=== PATIENT | female | born 1985 | race Caucasian/White ===

== ENCOUNTER 2018-09-30 18:18 | Observation (INO) | payer OTHER, SELFPAY ==
[2018-09-30 18:18] VITALS: BP 140/80; PULSE 109; RESP 18; TEMP 37.1; O2SAT 97; BMI 36.0
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
[2018-09-30 22:25] VITALS: BP 136/82; PULSE 72; RESP 16; O2SAT 100
[2018-09-30 22:31] LABS: Absolute Lymphocyte Count 2.05 X10^3/ul (0.83-4.51); Absolute Neutrophil Count 4.5 X10^3/uL (2.0-7.7); Basophil# 0.03 X10^3/uL; Basophil% 0.4 % (0-1); Eosinophil# 0.08 X10^3/uL; Eosinophils% 1.1 % (0-5); Hematocrit 43.3 % (37-47); Hemoglobin 14.2 g/dl (12.0-15.0); Lymphocyte # 2.05 X10^3/ul (4.0); Lymphocyte % 29.4 % (19-41); Mean Corp Hgb Conc 32.8 g/gl (32-36); Mean Corpuscular Hgb 28.9 pg (27.0-32.0); Mean Corpuscular Volume 88.2 fL (81-99); Mean Platelet Vol. 8.7 fl (6.2-12.0); Monocyte# 0.36 X10^3/uL; Monocyte% 5.2 % (0-10); Neutrophil # 4.45 X10^3/uL (2.7-7.7); Neutrophil % 63.9 % (47-70); Platelet Count 266 K/mm3 (150-450); RBC Distribution Width CV 13.1 % (11.6-14.6); Red Blood Count 4.91 M/mm3 (4.2-5.4)
[2018-09-30 22:37] LABS: POSITIVE COUNT NO; POSITIVE DIFFERENTIAL NO; POSITIVE MORPHOLOGY NO
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
[2018-09-30 22:48] LABS: Amphetamine Urine VISTA NEGATIVE (<1000 ng/mL); Barbiturate Urine VISTA NEGATIVE (< 200 ng/mL); Benzodiazepine Urine VISTA POSITIVE (< 200 ng/mL); Cocaine Urine VISTA NEGATIVE (< 300 ng/mL); Ecstacy Urine VISTA NEGATIVE (< 500 ng/mL); Methadone Urine VISTA NEGATIVE (< 300 ng/mL); PCP Urine VISTA NEGATIVE (< 25 ng/mL); THC Urine VISTA NEGATIVE (< 50 ng/mL); Vista UDS pH Range 6
[2018-09-30 22:56] LABS: Anion Gap 5 (5-15); BUN 11 mg/dL (7-18); BUN/Creat Ratio 13.6 RATIO (10-20); Calcium,Total 8.6 mg/dL (8.5-10.1); Chloride 106 mmol/L (98-107); Creatinine, Serum 0.81 mg/dL (0.55-1.02); EST Glomerular Filtration Rate 86 mL/min (>60); Est Glom Filt Rate - Afr Amer 105 mL/min (>60); Estimated Creatinine Clearance 88.89 ml/min; Glucose 97 mg/dL (74-106); Potassium 4.1 mmol/L (3.5-5.1); Pregnancy, Serum, hCG Quali. NEGATIVE Negative (0-9 Nonpreg); Sodium Level 137 mmol/L (136-145)
[2018-09-30 23:00] VITALS: BP 143/83; PULSE 83; RESP 16; TEMP 37; O2SAT 97
[2018-09-30 23:04] VITALS: BP 135/89
[2018-09-30 23:05] VITALS: BMI 32.4
[2018-09-30] MEDS: 0.9% Normal Saline 1,000 ML 100 ML IV (23:10)
[2018-09-30 23:11] VITALS: PULSE 77
[2018-09-30 23:18] VITALS: BMI 32.5
[2018-09-30 23:27] LABS: Thyroid Stim Hormone (TSH) 0.57 uIU/mL (0.358-3.74)
[2018-10-01] MEDS: diazePAM 5 MG Tablet 10 MG PO ×2 (00:36→09:45)
[2018-10-01 03:04] VITALS: PULSE 73
[2018-10-01 03:40] VITALS: BP 108/57; PULSE 70; RESP 16; TEMP 36.3; O2SAT 98
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
[2018-10-01 07:20] VITALS: PULSE 85
[2018-10-01 07:44] LABS: Cholesterol 168 mg/dL (200); High Density Lipoprotein 42 mg/dL; Triglycerides 62 mg/dL; Very Low Density Lipoprotein 12 mg/dL (5-40)
[2018-10-01 09:40] VITALS: BP 124/72; PULSE 78; RESP 15; TEMP 36.6; O2SAT 97
[2018-10-01] MEDS: Paroxetine 20 MG Tablet 40 MG PO (09:43)
[2018-10-01] MEDS: Aspirin 81 MG TAB.CHEW PO (09:43)
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
--- NOTE | 2018-10-01 11:37 | CASEMGMT ---
SOCIAL WORK NOTE PATIENT D/C'ED THIS DAY. UPON ENTERING, NURSE COMPLETING REVIEW OF D/C INSTRUCTIONS WITH PATIENT. ENCOURAGED PATIENT TO FOLLOW UP WITH COUNSELOR THIS DAY TO SCHEDULE APPOINTMENT. PATIENT STATES WILL BE CALLING WHEN SHE GETS HOME. PATIENT DENIES ANY OTHER NEEDS AT THIS TIME. ZURI MISHRA, C ARCHITECT, COPIER REPAIR TECHNICIAN.
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
== END 2018-10-01 11:00 | disposition home or self-care (01) ==
LOC: ED 19:09 → PCU 22:43
PROVIDERS: Admitting Provider Family Medicine; Emergency Provider Emergency Medicine; Family Provider Family Medicine; PCP Family Medicine; Referring Provider Family Medicine; Visit Provider Internal Medicine
DX: M54.9 Dorsalgia, unspecified (principal); G89.29 Other chronic pain; F43.12 Post-traumatic stress disorder, chronic; S09.90XA Unspecified injury of head, initial encounter; T71.9XXA Asphyxiation due to unspecified cause, initial encounter; F41.9 Anxiety disorder, unspecified; F32.9 Major depressive disorder, single episode, unspecified; Z79.899 Other long term (current) drug therapy; E66.9 Obesity, unspecified; Z68.32 Body mass index [BMI] 32.0-32.9, adult; Z71.3 Dietary counseling and surveillance; Y04.0XXA Assault by unarmed brawl or fight, initial encounter; Y93.9 Activity, unspecified; Y92.9 Unspecified place or not applicable
CPT/HCPCS: 36415; 70450; 70498; 70553; 72100; 80048; 80061; 80307; 80320; 84443; 84703; 85025; 96360; 96361; 99218; 99281; A9575; J7030; Q9967; A4216; G0378; G0480

== ENCOUNTER → 2018-12-07 12:49 | Outpatient (CLI) | payer OTHER, SELFPAY ==
[2018-12-14 08:07] LABS: Testosterone, % Free 0.96 % (0.50-2.80); Testosterone, Free 0.46 ng/dL (0.10-0.85); Testosterone, Total 48 ng/dL (8-48)
[2018-12-14 10:00] LABS: DHEA Sulfate 190.9 ug/dL (84.8-378.0)
== END ==
PROVIDERS: Family Provider Family Medicine; PCP Family Medicine; Referring Provider Family Medicine; Visit Provider Family Medicine
DX: L65.9 Nonscarring hair loss, unspecified (principal)
CPT/HCPCS: 36415; 82627; 84402; 84403; 82626

== ENCOUNTER 2019-03-12 21:44 | Emergency (ER) | payer OTHER, SELFPAY ==
[2019-03-12 21:46] VITALS: BP 124/92; PULSE 116; RESP 18; TEMP 36.6; O2SAT 98; BMI 29.3
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
[2019-03-12] MEDS: Morphine 4 MG/ML Syringe IM (22:18)
[2019-03-12] MEDS: Ondansetron ODT 4 MG Tablet PO (22:18)
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
== END 2019-03-12 23:34 | disposition home or self-care (01) ==
PROVIDERS: Emergency Provider Emergency Medicine; Family Provider Family Medicine; PCP Family Medicine
DX: S30.0XXA Contusion of lower back and pelvis, initial encounter (principal); Y04.2XXA Assault by strike against or bumped into by another person, initial encounter; Y93.89 Activity, other specified; F32.9 Major depressive disorder, single episode, unspecified; F40.01 Agoraphobia with panic disorder; F12.90 Cannabis use, unspecified, uncomplicated
CPT/HCPCS: 71046; 72100; 96372; 99284

== ENCOUNTER → 2019-06-23 13:57 | Outpatient (CLI) | payer OTHER, SELFPAY ==
[2019-06-23 15:52] LABS: Amphetamine Urine VISTA NEGATIVE (<1000 ng/mL); Barbiturate Urine VISTA NEGATIVE (< 200 ng/mL); Benzodiazepine Urine VISTA POSITIVE (< 200 ng/mL); Cocaine Urine VISTA NEGATIVE (< 300 ng/mL); Ecstacy Urine VISTA NEGATIVE (< 500 ng/mL); Methadone Urine VISTA NEGATIVE (< 300 ng/mL); PCP Urine VISTA NEGATIVE (< 25 ng/mL); THC Urine VISTA POSITIVE (< 50 ng/mL); Vista UDS pH Range 6
== END ==
PROVIDERS: Family Provider Family Medicine; PCP Family Medicine; Visit Provider Family Medicine
DX: Z51.81 Encounter for therapeutic drug level monitoring (principal)
CPT/HCPCS: 80307

== ENCOUNTER → 2019-07-27 14:08 | Outpatient (CLI) | payer OTHER, SELFPAY ==
[2019-07-27 15:46] LABS: Amphetamine Urine VISTA NEGATIVE (<1000 ng/mL); Barbiturate Urine VISTA NEGATIVE (< 200 ng/mL); Benzodiazepine Urine VISTA POSITIVE (< 200 ng/mL); Cocaine Urine VISTA NEGATIVE (< 300 ng/mL); Ecstacy Urine VISTA NEGATIVE (< 500 ng/mL); Methadone Urine VISTA NEGATIVE (< 300 ng/mL); PCP Urine VISTA NEGATIVE (< 25 ng/mL); THC Urine VISTA POSITIVE (< 50 ng/mL); Vista UDS pH Range 5
[2019-07-27 15:59] LABS: OXY Internal Control LINE = VALID (VALID); Oxycodone Drug Screen Negative (<100 ng/mL)
== END ==
LOC: BFHLAB 14:08
PROVIDERS: Family Provider Family Medicine; PCP Family Medicine; Visit Provider Family Medicine
DX: Z51.81 Encounter for therapeutic drug level monitoring (principal); M54.5 Low back pain; G89.29 Other chronic pain
CPT/HCPCS: 80307; 80365; G0480

== ENCOUNTER → 2020-02-18 13:41 | Outpatient (CLI) | payer OTHER, SELFPAY ==
[2020-02-18 16:14] LABS: OXY Internal Control LINE = VALID (VALID); Oxycodone Drug Screen Positive (<100 ng/mL)
[2020-02-18 16:20] LABS: Amphetamine Urine VISTA NEGATIVE (<1000 ng/mL); Barbiturate Urine VISTA NEGATIVE (< 200 ng/mL); Benzodiazepine Urine VISTA POSITIVE (< 200 ng/mL); Cocaine Urine VISTA NEGATIVE (< 300 ng/mL); Ecstacy Urine VISTA NEGATIVE (< 500 ng/mL); Methadone Urine VISTA NEGATIVE (< 300 ng/mL); PCP Urine VISTA NEGATIVE (< 25 ng/mL); Protein:Creat Ratio 63 mg/g CRE (0-200); THC Urine VISTA NEGATIVE (< 50 ng/mL); Vista UDS pH Range 6
== END ==
PROVIDERS: PCP Family Medicine; Visit Provider Family Medicine
DX: Z79.899 Other long term (current) drug therapy (principal)
CPT/HCPCS: 80307; 80365; 82570; 84156; G0480

== ENCOUNTER → 2020-03-09 13:29 | Outpatient (CLI) | payer OTHER, SELFPAY ==
[2020-03-09 15:27] LABS: Absolute Neutrophil Count 3.6 X10^3/uL (2.0-7.7); Basophil# 0.03 X10^3/uL; Basophil% 0.5 % (0-1); Eosinophil# 0.03 X10^3/uL; Eosinophils% 0.5 % (0-5); Hematocrit 40.1 % (37-47); Hemoglobin 13.5 g/dL (12.0-15.0); Lymphocyte % 28.8 % (19-41); Mean Corp Hgb Conc 33.7 g/dL (32-36); Mean Corpuscular Hgb 29.3 pg (27.0-32.0); Mean Corpuscular Volume 87.2 fL (81-99); Mean Platelet Vol. 9.3 fl (6.2-12.0); Monocyte# 0.32 X10^3/uL; Monocyte% 5.8 % (0-10); NRBC Flagged by Analyzer 0 % (0-5); Neutrophil # 3.55 X10^3/uL (2.7-7.7); Platelet Count 268 K/mm3 (150-450); RBC Distribution Width CV 13.7 % (11.6-14.6); RBC Distribution Width SD 42.6 fl (35.1-43.9); White Blood Count 5.6 K/mm3 (4.4-11.0)
[2020-03-09 16:04] LABS: Vitamin B12 675 pg/mL (211-911)
[2020-03-09 16:09] LABS: ALB/GLOB Ratio 0.9 RATIO (0.9-2.4); AST(SGOT) 14 U/L (15-37); Alanine Aminotransfer ALT/SGPT 19 U/L (13-56); Albumin, Serum 3.4 g/dL (3.2-5.0); Alkaline Phosphatase 74 U/L (45-117); Anion Gap 6 (5-15); BUN 5 mg/dL (7-18); BUN/Creat Ratio 6.8 RATIO (10-20); Calcium,Total 8.5 mg/dL (8.5-10.1); Chloride 111 mmol/L (98-107); Creatinine, Serum 0.73 mg/dL (0.55-1.02); EST Glomerular Filtration Rate 97 mL/min (>60); Est Glom Filt Rate - Afr Amer 117 mL/min (>60); Ferritin 51 ng/mL (8-252); Globulin 3.9 g/dL (2.2-4.2); Glucose 75 mg/dL (74-106); Iron 90 ug/dL (50-170); Potassium 3.4 mmol/L (3.5-5.1); Protein, Total 7.3 g/dL (6.4-8.2); Sodium Level 141 mmol/L (136-145); T4 Free Direct 1.11 ng/dL (0.76-1.46)
== END ==
LOC: BFHLAB 13:30
PROVIDERS: PCP Family Medicine; Visit Provider Family Medicine
DX: K91.1 Postgastric surgery syndromes (principal); L65.9 Nonscarring hair loss, unspecified; R53.83 Other fatigue
CPT/HCPCS: 36415; 80053; 82607; 82728; 83540; 84439; 84443; 85025

== ENCOUNTER → 2020-04-25 13:13 | Outpatient (CLI) | payer OTHER, SELFPAY ==
[2020-04-25 15:23] LABS: Estradiol 295.6 pg/mL; Follicle Stimulating Hormone 2.8 mIU/mL; Luteinizing Hormone 4.8 mIU/mL
[2020-04-26 08:39] LABS: Procalcitonin < 0.04 ng/mL (0.00-0.09)
== END ==
LOC: BFHLAB 13:15
PROVIDERS: PCP Family Medicine; Visit Provider Family Medicine
DX: L65.9 Nonscarring hair loss, unspecified (principal); R23.2 Flushing; L68.0 Hirsutism
CPT/HCPCS: 36415; 82627; 82670; 83001; 83002; 84145; 84403; 82626

== ENCOUNTER → 2020-05-09 17:10 | Outpatient (CLI) | payer OTHER, SELFPAY | PROVIDERS: PCP Family Medicine; Referring Provider Family Medicine; Visit Provider Family Medicine | DX: Z20.828 Contact with and (suspected) exposure to other viral communicable diseases (principal) | CPT/HCPCS: 87635; C9803; U0003 ==

== ENCOUNTER → 2020-09-14 16:05 | Outpatient (CLI) | payer OTHER, SELFPAY ==
[2020-09-14 17:16] LABS: Amphetamine Urine VISTA NEGATIVE (<1000 ng/mL); Barbiturate Urine VISTA NEGATIVE (< 200 ng/mL); Benzodiazepine Urine VISTA POSITIVE (< 200 ng/mL); Cocaine Urine VISTA NEGATIVE (< 300 ng/mL); Ecstacy Urine VISTA NEGATIVE (< 500 ng/mL); Methadone Urine VISTA NEGATIVE (< 300 ng/mL); PCP Urine VISTA NEGATIVE (< 25 ng/mL); THC Urine VISTA NEGATIVE (< 50 ng/mL); Vista UDS pH Range 6
[2020-09-14 17:21] LABS: OXY Internal Control LINE = VALID (VALID); Oxycodone Drug Screen Positive (<100 ng/mL)
== END ==
LOC: BFHLAB 16:06
PROVIDERS: PCP Family Medicine; Visit Provider Family Medicine
DX: Z79.899 Other long term (current) drug therapy (principal)
CPT/HCPCS: 80307; 80365; G0480

== ENCOUNTER → 2020-10-11 17:47 | Outpatient (CLI) | payer OTHER, SELFPAY ==
--- NOTE | 2020-10-11 17:52 | MRI_ITS ---
STUDY: MRI LUMBAR SPINE WITHOUT CONTRAST REASON FOR EXAM: Female, 35 years old. LOW BACK PAIN TECHNIQUE: Standardized fat and water weighted pulse sequences were obtained in the sagittal and axial planes. COMPARISON: X-ray 03/12/2019. FINDINGS: T12-L1: Disc dehydration. Small T12 Schmorl''s node. Normal bilateral facet joints. Normal central canal and bilateral lateral recesses. Normal bilateral intervertebral neural foramina. Normal lumbar lordosis. There is no substantial scoliosis. Normal conus medullaris that terminates at the L1-2: Normal endplates. Disc dehydration. Normal bilateral facet joints. Normal central canal and bilateral lateral recesses. Normal bilateral intervertebral neural foramina. L2-3: Normal endplates. Disc dehydration. Small right paracentral annular fissure. Normal bilateral facet joints. Normal central canal and bilateral lateral recesses. Normal bilateral intervertebral neural foramina. L3-4: Normal endplates. Normal disc height, hydration and morphology. Normal bilateral facet joints. Normal central canal and bilateral lateral recesses. Normal bilateral intervertebral neural foramina. L4-5: Normal endplates. Disc dehydration and mild disc space narrowing. Normal bilateral facet joints. Normal central canal and bilateral lateral recesses. Normal bilateral intervertebral neural foramina. L5-S1: Normal endplates. Disc dehydration. Normal bilateral facet joints. Normal central canal and bilateral lateral recesses. Normal bilateral intervertebral neural foramina. Normal visualized sacral ala. Normal visualized paraspinous soft tissue structures. MRI/Spine Lumbar (Routine) IMPRESSION: 1. L2-3 annular fissure. 2. Multilevel degenerative disc changes. Electronically Signed: Hui Ohara MD at 21:13 EDT Tel , Service support ,
== END ==
PROVIDERS: PCP Family Medicine; Referring Provider Family Medicine; Visit Provider Family Medicine
DX: M54.16 Radiculopathy, lumbar region (principal)
CPT/HCPCS: 72148

== ENCOUNTER → 2020-11-30 | Outpatient (CLI) | payer OTHER, SELFPAY ==
[2020-11-30 18:24] LABS: Amphetamine Urine VISTA NEGATIVE (<1000 ng/mL); Barbiturate Urine VISTA NEGATIVE (< 200 ng/mL); Benzodiazepine Urine VISTA POSITIVE (< 200 ng/mL); Cocaine Urine VISTA NEGATIVE (< 300 ng/mL); Ecstacy Urine VISTA NEGATIVE (< 500 ng/mL); Methadone Urine VISTA NEGATIVE (< 300 ng/mL); PCP Urine VISTA NEGATIVE (< 25 ng/mL); THC Urine VISTA NEGATIVE (< 50 ng/mL); Vista UDS pH Range 5
[2020-11-30 18:35] LABS: OXY Internal Control LINE = VALID (VALID); Oxycodone Drug Screen Positive (<100 ng/mL)
[2020-11-30 20:19] LABS: Chlamydia Trachomatis by PCR Negative (Negative); Neisserai gonorrhoeae by PCR Negative (Negative); Probe Check PASS; Sample Adequacy Control PASS; Specimen Processing Control PASS
== END | disposition home or self-care (01) ==
PROVIDERS: PCP Family Medicine; Visit Provider Family Medicine
DX: N89.8 Other specified noninflammatory disorders of vagina (principal); Z51.81 Encounter for therapeutic drug level monitoring
CPT/HCPCS: 80307; 80365; 87491; 87591; G0480

== ENCOUNTER 2021-01-30 19:30 | Emergency (ER) | payer OTHER, SELFPAY ==
[2021-01-30 19:32] VITALS: BP 136/68; PULSE 107; RESP 18; TEMP 36.6; O2SAT 98; BMI 29.0
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
== END 2021-01-30 20:14 | disposition home or self-care (01) ==
LOC: ED 20:09
PROVIDERS: Emergency Provider Emergency Medicine; PCP Family Medicine
DX: R51.9 Headache, unspecified (principal); F17.210 Nicotine dependence, cigarettes, uncomplicated; F41.9 Anxiety disorder, unspecified; Z79.899 Other long term (current) drug therapy
CPT/HCPCS: 99283

== ENCOUNTER 2021-12-03 16:50 | Emergency (ER) | payer OTHER, SELFPAY ==
[2021-12-03 16:51] VITALS: BP 132/95; PULSE 132; RESP 18; TEMP 36.5; O2SAT 98; BMI 24.1
--- NOTE | 2021-12-03 17:34 | EDS_ITS ---
HPI History of Present Illness Chief Complaint: Palpitations Informant: patient Onset/Context/Timing Onset: Today Timing: Continuous Narrative Narrative: 36-year-old female history of PTSD and anxiety. Also mitral valve prolapse. About 3 hours ago she woke up that she did not feel great and noticed her heart rate was accelerated. She did not feel anxious but took 1 Xanax and 2 clonazepam. Said her heart rate still slightly elevated. She denies chest pain or any shortness of breath. No leg pain or swelling. No hemoptysis. Denies recent illness. Denies fever or, nausea, vomiting, diarrhea. No melena. Prior Similar Symptoms: Yes Recent Illness/Hospitalization: No CVD Risk Factors: Negative for Hypertension and Diabetes PE Risk Factors: Negative for Recent Travel/Surgery, Recent Immobilization, Prior DVT or PE, Cancer and OCP + Smoking + >/=35 TAD Risk Factors: Negative for Marfan's Syndrome [facility] Medical History (Updated 12/03/21 @ 21:[address] Yaw Brown MD) Anxiety Depression PTSD (post-traumatic stress disorder) Home Medications alprazolam [Xanax] 1 mg PO DAILY PRN 09/30/18 [History Last Taken Unknown] clonazepam 1 mg PO DAILY 12/03/21 [History Last Taken Unknown] nystatin 1 applic TOPICAL BID #30 g 12/03/21 [Rx Last Taken Unknown] Allergy/AdvReac Type Severity Reaction Status Date / Time iodine AdvReac Other Verified 12/03/21 16:50 Surgical History (Updated 12/03/21 @ 18:14 by Jazmyn Blakely) History of cholecystectomy History of hysterectomy Social History Smoking Status: Current every day smoker tobacco type: cigarettes and smokeless tobacco ROS ROS ED ROS Narrative Denies. Review of Systems ROS Unobtainable: Denies due to encephalopathy Constitutional Constitutional ED: Denies fever(s) Eyes Eyes: Denies none ENT ENT ED: Denies ear pain Cardiovascular Cardiovascular: Reports palpitations and racing heartbeat; Denies as per HPI or chest pain Respiratory/Chest Respiratory/Chest: Denies dyspnea Gastrointestinal Gastrointestinal: Denies abdominal pain, diarrhea, nausea or vomiting Genitourinary Genitourinary ED: Denies dysuria or hematuria Musculoskeletal Musculoskeletal: Denies myalgias Integumentary Denies rash Neurologic Neurologic: Denies headache(s) Psychiatric Psychiatric: Denies depression Endocrine Endocrinology: Denies polyuria Hematologic/Lymphatic Hematologic/Lymphatic: Denies easy bruising Allergic/Immunologic Allergic/Immunologic ED: Denies urticaria EXAM Physical Exam Narrative Exam Narrative: 36-year-old female no acute distress. Vital signs stable afebrile initial heart rate in triage 132 now is down to 107. She is afebrile. Pulse ox 90% on room air no signs hypoxia. H EENT exam unremarkable lungs are clear. Heart regular rhythm rate about 107 no murmur. Chest were nontender. Abdomen soft nontender. Moving all extremities. Calves are nontender without edema or cords. Neurologically she is awake and alert with no focal motor deficits. She is Const Vital Signs: 12/03/21 16:51 12/03/21 18:10 12/03/21 20:26 Temperature 97.7 F L Temperature Source Temporal Pulse Rate 132 H 95 91 Respiratory Rate 18 19 H 20 H Respiratory Effort Normal Non-Labored Respiratory Pattern Normal Blood Pressure 132/95 H 105/79 Blood Pressure Mean 107 87 Pulse Ox 98 98 Oxygen Delivery Method Room Air Room Air Room Air 12/03/21 20:50 Temperature Temperature Source Pulse Rate 86 Respiratory Rate 17 Respiratory Effort Respiratory Pattern Blood Pressure 108/86 H Blood Pressure Mean Pulse Ox 96 Oxygen Delivery Method Positive well nourished and well developed; Negative for obese, cachectic, contractures or unkempt General Appearance ED: well developed and NAD; Negative for unkempt, cachectic, contractures or pallor Nutritional Appearance: Negative for cachectic or obese HEENT Reports moist mucous membranes normocephalic and atraumatic; Negative for trauma or tenderness Eyes PERRL and EOMs intact bilaterally General Eye ED: Negative for pale conjunctiva or scleral icterus Neck no lymphadenopathy, supple and no JVD General: Negative for tenderness Chest Wall inspection of chest normal and palpation of chest normal Chest: Negative for tenderness Resp normal respiratory effort and clear to auscultation bilaterally Effort and Inspection: respiratory distress Auscultation: Negative for rales, rhonchi or wheezes Cardio regular rhythm, S1 normal heart sound, S2 normal heart sound and no murmurs; Negative for regular rate Rate: tachycardic GI normal to inspection, nondistended, normoactive bowel sounds, soft to palpation, non-tender, non-distended and no masses; Negative for hepatosplenomegaly Auscultation: Negative for hyperactive bowel sounds Palpation: Negative for splenomegaly or mass Back/Spine no CVA tenderness and no thoracic nor lumbar tenderness General Back: Negative for CVA tenderness Cervical Spine: Negative for cervical spine tenderness Extremity normal to inspection General Extremety ED: Negative for edema, pulses abnormal or tenderness General Extremity: Negative for edema or pulses abnormal Neuro oriented x3 Sensorium / Orientation: awake, alert, oriented to person, oriented to place and oriented to time; Negative for confused, lethargic or stuporous Motor Exam: strength 5/5 throughout Psych mental status grossly normal Appearance: Negative for unkempt Mood & Affect: depressed and anxious Skin no rashes or lesions noted and no wounds General Skin Exam: Negative for jaundice or pallor Rashes: No rashes noted Trauma: Negative for abrasion or puncture MDM MDM MDM Narrative Medical decision making narrative: 36-year-old with tachycardia. I suspect this abdomen anxiety. Exam is benign. Screening labs being obtained. Back to reevaluate the patient. She is standing in the hallway. She seems quite upset. The patient was extremely disrespectful to the nursing staff. She was cursing and being verbally abusive to them. I explained to her that her test results look good. Her potassium was only slightly low. There is nothing abnormal I can find either on exam or her EKG or labs. She started cursing at me. We will have security discharge her from the department. Prior to patient leaving she seemed to calm down. I went back in his room to exam room with the charge nurse that she had a [id number] male look at it is obviously a skin yeast infection along the medial aspect of her breast. I explained to her we will call her in a prescription to her pharmacy for nystatin cream. She apologized to me for her behavior. And then later apologized to the nurse prior to being discharged. Lab Data Attestation: I reviewed the patient's lab results. Lab results narrative: CBC unremarkable white count of 5. H&H 13 and 39. Electrolytes unremarkable and potassium of 3.2. Normal gap of 7. Normal BUN and creatinine. Normal glucose 84. Labs: Laboratory Results - last 24 hr 12/03/21 12/03/21 17:55 17:55 WBC 5.3 RBC 4.59 Hgb 13.7 Hct 39.1 MCV 85.2 MCH 29.8 MCHC 35.0 RDW Std Deviation 37.4 RDW Coeff of Hugo 12.4 Plt Count 291 MPV 9.0 Sodium 141 Potassium 3.2 L Chloride 105 Carbon Dioxide 29.0 Anion Gap 7 BUN 10 Creatinine 0.84 Estim Creat Clear Calc 83.31 Est GFR (MDRD) Af Amer 98 Est GFR (MDRD) Non-Af 81 BUN/Creatinine Ratio 11.9 Glucose 84 Calcium 9.2 Rhythm Strip Rhythm Strip: Sinus Tach Rate: 107 Ectopy: None EKG Initial EKG: Attestation: I personally reviewed and interpreted this EKG as follows: Interpretation: Sinus Rhythm, No Acute Injury Pattern and Sinus Tachycardia Comments: Sinus tachycardia rate of 107 no acute signs of CA, ischemia nor dysrhythmia. Prior EKG tracings: not available for review Discharge Plan Triage Chief Complaint: Palpitations ED Provider: Yaw Brown Dx/Rx/DC Orders Clinical Impression: Heart palpitations, Anxiety, History of post traumatic stress disorder, Acute hypokalemia, Skin yeast infection Instructions: ED Hypokalemia, ED Palpitations Prescriptions: New nystatin 100,000 unit/gram ointment 1 applic topical BID Qty: 30 RF: 0 No Action alprazolam [Xanax] 1 MG tablet 1 mg PO DAILY PRN (Reason: Anxiety) RF: 0 clonazepam 1 mg tablet,disintegrating 1 mg PO DAILY RF: 0 Primary Care Provider: Wyatt Karimi Referrals: Wyatt Karimi DO [Primary Care Provider] - 1 Week Activity Restrictions/Additional Instructions: Follow-up with your doctor. Your EKG and labs were unremarkable except your potassium was just below normal. Make sure you are eating plenty of green leafy vegetables and fruit and your potassium level should come up to normal. Disposition Disposition: Home, Self Care
--- NOTE | 2021-12-03 17:58 | EKG12_ITS ---
Test Reason : TACHY Blood Pressure : / mmHG Vent. Rate : 107 BPM Atrial Rate : 107 BPM P-R Int : 134 ms QRS Dur : 074 ms QT Int : 338 ms P-R-T Axes : 064 083 059 degrees QTc Int : 451 ms Sinus tachycardia Otherwise normal ECG Confirmed by IVORY LUU, ROSEMARY ([id number]), mapping editor CATRACHO MARRUFO ([id number]) on 12/05/2021 10:34:51 AM Referred By: Confirmed By:ROSEMARY DODSON MD
[2021-12-03 18:04] LABS: Hematocrit 39.1 % (37-47); Hemoglobin 13.7 g/dL (12.0-15.0); Mean Corpuscular Hgb 29.8 pg (27.0-32.0); Mean Corpuscular Volume 85.2 fL (81-99); Platelet Count 291 K/mm3 (150-450); RBC Distribution Width CV 12.4 % (11.6-14.6); RBC Distribution Width SD 37.4 fl (35.1-43.9); Red Blood Count 4.59 M/mm3 (4.2-5.4); White Blood Count 5.3 K/mm3 (4.4-11.0)
[2021-12-03 18:10] VITALS: PULSE 95; RESP 19
[2021-12-03 18:18] LABS: Anion Gap 7 (5-15); BUN 10 mg/dL (7-18); BUN/Creat Ratio 11.9 RATIO (10-20); Calcium,Total 9.2 mg/dL (8.5-10.1); Chloride 105 mmol/L (98-107); Creatinine, Serum 0.84 mg/dL (0.55-1.02); EST Glomerular Filtration Rate 81 mL/min (>60); Est Glom Filt Rate - Afr Amer 98 mL/min (>60); Estimated Creatinine Clearance 83.31 ml/min; Glucose 84 mg/dL (74-106); Potassium 3.2 mmol/L (3.5-5.1); Sodium Level 141 mmol/L (136-145)
[2021-12-03 20:26] VITALS: BP 105/79; PULSE 91; RESP 20; O2SAT 98
--- NOTE | 2021-12-03 20:40 | ED.RN ---
pt was very pleasant, did the pts med list. then out of no where the pt started swearing at this rn, stated she was going to rip all the wires off herand leave calling this rn a bitch. dr was notified that she was leaving, he went to go talk w her and she started calling him a bitch also.
[2021-12-03 20:50] VITALS: BP 108/86; PULSE 86; RESP 17; O2SAT 96
--- NOTE | 2021-12-03 20:50 | ED.RN ---
this nurse as charge nurse went into patients room at this time due to patient complaining about care and cussing at nursing staff. Security outside the room at this time. IV d/c at this time. Patient asking for Drs name. Name given. patient asked nurses name explained to patient that we do not give out nurses name that if she wants to file a complaint the nurses name will be on the chart. explained patient discharge orders and information with patient at this time. patient requesting medication for low potassium advised the patient that her level wasn't low enough to treat with medication. patient family understood reasoning. patient does not agree. patient requesting medication for rash. spoke with Dr. Brown at this time who did not see rash. Patient allow Dr. Brown to look at rash and medication to be sent to pharmacy for patient to last picker. patient family expressed understanding of discharge instructions. patient wanted to apologize for earlier behavior
== END 2021-12-03 21:14 | disposition home or self-care (01) ==
PROVIDERS: Emergency Provider Emergency Medicine; PCP Family Medicine; Visit Provider Emergency Medicine
DX: R00.2 Palpitations (principal); F41.9 Anxiety disorder, unspecified; F17.210 Nicotine dependence, cigarettes, uncomplicated; E87.6 Hypokalemia; F32.A Depression, unspecified; Z79.899 Other long term (current) drug therapy
CPT/HCPCS: 80048; 85027; 93005; 99284; A4216